=== PATIENT | female | born 1985 | race American Indian/Alaskan Native ===

== ENCOUNTER 2016-05-18 11:18 | Inpatient (IN) | payer MEDICAID ==
--- NOTE | 2016-05-18 12:15 | History and Physical Report ---
History of Present Illness Date of examination: 05/18/16 Date of admission: 05/18/16 11:18 Chief complaint: Oligohydramnios History of present illness: 31-year-old at 38+4 weeks presents with above complaints and issues, she is a [facility] patient. Essential history is patient's seen at [facility] regularly due to hypertension and obesity. During today's evaluation, incidental finding of oligohydramnios noted, CRESCENCIO 3.3 She claims she thinks she ruptured last night and was having contractions however did not call. 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 denies: smoking - Obstetrical History Expected Date of Delivery: 05/28/16 Actual Gestation: 38 Week(s) 4 Day(s) : 4 Para: 3 Medications and Allergies Allergies Allergy/AdvReac Type Severity Reaction Status Date / Time No Known Allergies Allergy Verified 06/19/15 15:47 Home Medications Medication Instructions Recorded Confirmed Last Taken Type Amoxicillin/K Clav Tab [Augmentin 1 tab PO Q12HR #20 tab 06/19/15 Unknown Rx 875 mg] HYDROcodone/APAP 7.5-325 [[place]] 7.5 mg PO Q8HR #150 ml 06/19/15 Unknown Rx Ibuprofen [Motrin] 800 mg PO Q8HR PRN #15 tablet 06/19/15 Unknown Rx Nystatin [Nystatin SUSP] 5 ml PO QID #1 bottle 06/19/15 Unknown Rx Review of Systems Constitutional: no weight gain, no fever, no chills, no sweats Cardiovascular: no orthopnea, no palpitations, no lightheadedness, no shortness of breath, no dyspnea on exertion Respiratory: no shortness of breath, no dyspnea on exertion Gastrointestinal: no abdominal pain, no nausea, no vomiting, no heartburn, no indigestion Genitourinary: leakage of fluid, no vaginal bleeding, no vaginal discharge - Physical Exam Cardiovascular: Regular rate, Normal S1, Normal S2 Lungs: Positive: Clear to auscultation, Normal air movement Abdomen: Positive: normal appearance, soft, other (Obese). Negative: guarding, rigidity Genitourinary (Female): Positive: normal external genitalia Uterus: Positive: enlarged (Dificult to Field Service Manager EFW due to habitus) Extremities: Positive: normal Results All other labs normal. Assessment and Plan A: 31 y/o at 38+4 wks s/p SROM -BPP 12/02 today -3 prior c-sections and desires BTL -Pt ate at 09:00 am P: -Will proceed with 4th repeat LTCS & BTL once possible -She has been consented - Patient Problems (1) 38 weeks gestation of Current Visit: Yes Status: Acute (2) History of 3 sections Current Visit: Yes Status: Acute (3) Spontaneous rupture of amniotic membranes Current Visit: Yes Status: Acute
[2016-05-18] MEDS ORDERED: BICITRA PO ONE (12:21)
[2016-05-18] MEDS ORDERED: PEPCID IV ONE ×2 (12:21→17:12)
[2016-05-18] MEDS ORDERED: REGLAN IV ONE (12:21)
[2016-05-18] MEDS ORDERED: EMLA TP PRN (12:21)
[2016-05-18] MEDS ORDERED: NACL 0.9% 500 ML 500 ML IV ONE (12:22)
[2016-05-18] MEDS ORDERED: ANCEF/STERILE WATER 2 GM/20 ML 20 ML IV NR (13:00)
[2016-05-18] MEDS ORDERED: PITOCin/NS 20 UNIT/1000ML DRIP 1,000 ML IV NR (13:00)
[2016-05-18] MEDS ORDERED: ANCEF/NS 1 GM/50 ML 50 ML IV NR (13:00)
[2016-05-18 13:27] LABS: Basophils % (Auto) 0.5 % (0.0-1.8); Eosinophils % (Auto) 2.1 % (0.0-4.3); Hemoglobin 12.6 gm/dl (10.1-14.3); Mean Corpuscular HGB Conc 33 % (30-34); Mean Corpuscular Hemoglobin 29 pg (28-32); Mean Corpuscular Volume 87 fl (79-97); Platelet Count 212 K/mm3 (140-440); Red Blood Count 4.39 M/mm3 (3.65-5.03); Red Cell Distribution Width 13.8 % (13.2-15.2)
[2016-05-18 13:30] LABS: White Blood Count 10.5 K/mm3 (4.5-11.0)
[2016-05-18] MEDS ORDERED: FLUARIX QUAD 2016-2017(36 MOS+) IM ONE (13:57)
--- NOTE | 2016-05-18 15:56 | Anesthesia Consultation ---
Anesthesia Consult and Med Hx Date of service: 05/18/16 - Airway Anesthetic Teeth Evaluation: Good ROM Head & Neck: Adequate Mental/Hyoid Distance: Adequate Mallampati Class: Class II Intubation Access Assessment: Probably Good - Pre-Operative Health Status ASA Pre-Surgery Classification: ASA2 Proposed Anesthetic Plan: Epidural, Spinal - Pulmonary Hx Asthma: No COPD: No Hx Pneumonia: No - Cardiovascular System Hx Hypertension: No - Central Nervous System Hx Seizures: No Hx Psychiatric Problems: No - Endocrine Hx Renal Disease: No Hx Hypothyroidism: No Hx Hyperthyroidism: No - Hematic Hx Anemia: No Hx Sickle Cell Disease: No - Other Systems Hx Obesity: Yes (Modbid obesity BMI 48.4)
--- NOTE | 2016-05-18 16:05 | Anesthesia Day of Surgery ---
Anesthesia Day of Surgery - Day of Surgery Patient Examined: Yes Patient H&P Reviewed: Yes Patient is NPO: Yes (had breakfast at 9AM)
[2016-05-18] MEDS ORDERED: NARCAN 0.4 MG/1 ML IV PRN ×2 (16:09→19:19)
[2016-05-18] MEDS ORDERED: DILAUDID IV PRN (16:09)
[2016-05-18] MEDS ORDERED: ZOFRAN IV PRN (16:09)
[2016-05-18] MEDS ORDERED: BENADRYL IV PRN (16:09)
[2016-05-18] MEDS: LACTATED RINGERS 1,000 ML IV NR ×3 (16:29→17:20)
[2016-05-18] MEDS ORDERED: SODIUM CHLORIDE FLUSH SYRINGE 10 ML IV NR ×2 (17:00→20:00)
[2016-05-18] MEDS ORDERED: LACTATED RINGERS 1,000 ML IV SCH (17:00)
[2016-05-18] MEDS ORDERED: REGLAN ONE (17:10)
[2016-05-18] MEDS ORDERED: BICITRA ONE (17:10)
[2016-05-18] MEDS ORDERED: MORPHINE ONE (17:24)
[2016-05-18] MEDS ORDERED: ZOFRAN ONE (17:53)
[2016-05-18] MEDS ORDERED: ANCEF ONE (18:02)
[2016-05-18] MEDS ORDERED: ANCEF IV ONE (18:05)
[2016-05-18] MEDS ORDERED: ANCEF/STERILE WATER 2 GM/20 ML IV ONE (18:05)
[2016-05-18] MEDS ORDERED: WATER FOR IRRIG STERILE IR ONE (18:06)
[2016-05-18] MEDS ORDERED: NACL 0.9% IR ONE (18:06)
[2016-05-18] MEDS ORDERED: NEO SYNEPHRINE ONE (18:20)
[2016-05-18] MEDS ORDERED: VERSED ONE ×2 (18:21→18:31)
[2016-05-18] MEDS ORDERED: XYLOCAINE MPF 2% ONE ×2 (18:34→18:45)
[2016-05-18] MEDS ORDERED: SUBLIMAZE ONE (18:36)
[2016-05-18] MEDS ORDERED: NACL 0.9% 100 ML ONE (18:43)
--- NOTE | 2016-05-18 19:17 | Operative Report ---
Operative Report Operative Report: DATE: 05/18/2016 PREOPERATIVE DIAGNOSIS: 31-year-old at 38+4 weeks, 3 prior C-sections, morbid obesity, Oligohydramnios POSTOP DIAGNOSIS: Same NAME OF PROCEDURE: 4th Repeat low transverse section with bilateral tubal ligation using Filshie clips SURGEON: CHARLEY SAMPSON MD ASPHALT LAYER: [] ANESTHESIA: Combined spinal epidural EBL: 900 mL PATHOLOGY SPECIMEN: None URINE OUTPUT: 200 mL FINDINGS: Male in cephalic presentation, time of was 18:23, infant weight was 6 lbs. 15 oz. or 3152 g, Apgars were 8 and 9, normal uterus, tubes and ovaries bilaterally, mild adhesions DESCRIPTION OF PROCEDURE: She was taken to the operating room where she was prepped and draped in a sterile fashion, she was placed in the dorsal supine position. Pfannenstiel incision was performed through her prior incisional scar which was carried through to underlying rectus fascia which was on the midline. The fascial incision was extended laterally with use of Ling scissors , the anterior leaf was then grasped with Kochers forceps elevated dissected sharply and bluntly off the underlying rectus in a similar fashion inferior leaf was grasped elevated dissected sharply and bluntly off the underlying rectus. The rectus was in the midline, good visualization of bladder was noted. A bladder blade was placed in the patient's pelvic cavity; bladder flap was created. A hysterotomy incision was then performed in the lower segment with clear amniotic fluid noted, hysterotomy incision was extended laterally with the use of fingers manually. in cephalic presentation was delivered in the usual manner; cord was clamped and cut was handed over to waiting nursery staff. The placenta was then delivered manually intact , the uterus was exteriorized cleared of all clots and debris. Hysterotomy incision was then closed in a running locked fashion with 0 Vicryl on a CTX; using the same suture was imbricate the initial layer. Interrupted figure-of- eight stitches were used to obtain hemostasis. Attention was then turned to the left and right tubes where using Filshie clips both tubes were clamped and occluded with good blanching noted. The Uterus was then returned to the patient 's pelvic cavity; peritoneal edges were grasped with hemostats and Erendira's elevated copiously irrigation was used to clear the gutters of all clots and debris. Tercel hemostatic agent was then applied to the hysterotomy incision as a means to prevent future bleeding, Interceed was then applied into the pelvic cavity as a means to prevent future adhesions. The peritoneal layer was then closed in a running fashion with 3-0 Vicryl and the rectus was reapproximated with a single [id number] stitch. The fascia was closed in a running fashion with 0 Vicryl and tied in the opposite side. The subcutaneous layer was irrigated and then reapproximated with interrupted [id number]-[id number] stitches. The skin was closed in a subcuticular manner with 4-0 Vicryl. She tolerated the procedure well lap and instrument counts were correct 2 she did receive 3 g of Ancef prior to incision she is transferred to PACU in stable condition thank you.
[2016-05-18] MEDS ORDERED: TYLENOL PO PRN (19:19)
[2016-05-18] MEDS ORDERED: PHENERGAN PR PRN (19:19)
[2016-05-18] MEDS ORDERED: MILK OF MAGNESIA PO PRN (19:19)
[2016-05-18] MEDS ORDERED: TUCKS PAD TP PRN (19:19)
[2016-05-18] MEDS ORDERED: MYLICON PO PRN (19:19)
[2016-05-18] MEDS ORDERED: LANSINOH TP PRN (19:19)
[2016-05-18] MEDS ORDERED: ANUCORT-HC PR PRN (19:19)
[2016-05-18] MEDS ORDERED: SENOKOT PO PRN (19:19)
[2016-05-18] MEDS ORDERED: MORPHINE IV PRN ×2 (19:27)
--- NOTE | 2016-05-18 19:27 | Post Anesthesia Evaluation ---
- Post Anesthesia Evaluation Patient Participated: Yes Airway Patent: Yes Stable Respiratory Function: Yes Nausea/Vomiting: No Temp > 96.8F: Yes Pain Manageable: Yes Adequeate Hydration: Yes Anesthesia Complications: No Block Receding Appropriately: Yes Patient on Ventilator: No
[2016-05-18] MEDS: TORADOL IV PRN (19:41)
[2016-05-18] MEDS ORDERED: D5LR 1,000 ML IV SCH (20:00)
[2016-05-18] MEDS ORDERED: PITOCin/NS 20 UNIT/1000ML DRIP 1,000 ML IV SCH (20:00)
[2016-05-19] MEDS ORDERED: BOOSTRIX IM ONE (06:00)
--- NOTE | 2016-05-19 07:16 | Progress Note ---
Assessment and Plan - Patient Problems (1) Status post repeat low transverse section Diagnosis Date: 05/19/16 Current Visit: Yes Status: Acute Plan to address problem: A: S/P Repeat C Section with BTL - POD #1 Doing well P: Continue with RPOC Anticipate discharge in 24-48hrs Subjective - Subjective Date of service: 05/19/16 Principal diagnosis: s/p Repeat C Section with BTL - POD #1 Interval history: Pt is feeling well without complaints. Tolerating clear liquids without nausea or vomiting. No flatus yet. Patient reports: appetite normal, voiding normally, pain well controlled, no flatus, no bowel movement, no ambulating normally : doing well, bottle feeding Objective - Vital Signs Latest vital signs: Vital Signs Temp Pulse Pulse Resp BP BP Pulse Ox 05/19/16 03:22 97.5 F L 83 20 124/75 05/18/16 20:27 71 18 126/81 99 05/18/16 20:25 97.4 F L 75 18 118/70 05/18/16 20:00 78 18 115/64 99 05/18/16 19:41 18 05/18/16 19:40 77 18 122/72 93 05/18/16 19:35 79 18 109/60 93 05/18/16 19:30 83 18 116/61 93 05/18/16 19:24 97.6 F 84 18 93 05/18/16 13:11 89 98 05/18/16 13:05 86 98 05/18/16 13:00 89 96 05/18/16 12:55 94 H 92 05/18/16 12:51 91 H 99 05/18/16 12:46 86 99 05/18/16 12:41 94 H 95 05/18/16 12:00 98.6 F Intake and Output 05/18/16 05/19/16 05/19/16 22:59 06:59 14:59 Intake Total 250 1000 Output Total 50 Balance 200 1000 Intake: IV 250 1000 D5lr 1,000 ml @ 125 mls/ 250 1000 hr IV DIRECT FAMILIA Rx#: [id number] Output: Urine 50 Uretheral (Cardenas) 50 - Exam Breasts: Present: deferred Cardiovascular: Present: Regular rate Lungs: Present: Clear to auscultation Abdomen: Present: normal appearance, soft Uterus: Present: normal, firm, fundal height below umbilicus Extremities: Present: normal Incision: Present: normal, dry, intact, dressed - Labs Labs: Abnormal lab results 05/18/16 05/18/16 Range/Units 13:05 13:05 [place] % (Auto) 11.9 H (0.0-7.3) % [place] # 1.2 H (0.0-0.8) K/mm3 Crossmatch See Detail Laboratory Tests 05/18/16 05/18/16 05/19/16 13:05 13:05 07:07 WBC 10.5 RBC 4.39 Hgb 12.6 11.1 Hct 38.0 33.1 MCV 87 MCH 29 MCHC 33 RDW 13.8 Plt Count 212 Lymph % (Auto) 24.6 [place] % (Auto) 11.9 H Eos % (Auto) 2.1 Baso % (Auto) 0.5 Lymph # 2.5 [place] # 1.2 H Eos # 0.2 Baso # 0.0 Seg Neutrophils % 60.9 Seg Neutrophils # 6.5 Blood Type O POSITIVE Antibody Screen Negative Crossmatch See Detail
[2016-05-19 07:20] LABS: Hematocrit 33.1 % (30.3-42.9); Hemoglobin 11.1 gm/dl (10.1-14.3)
[2016-05-19] MEDS: TORADOL IV PRN (07:42)
[2016-05-19] MEDS: FEOSOL PO SCH (12:44)
[2016-05-19] MEDS: PRENATAL VITAMIN PO SCH (12:45)
[2016-05-19] MEDS: PERCOCET 5/325 PO PRN ×2 (15:25→23:45)
[2016-05-19] MEDS: MOTRIN PO PRN ×2 (17:24→23:45)
[2016-05-20] MEDS: PERCOCET 5/325 PO PRN (06:30)
[2016-05-20] MEDS: MOTRIN PO PRN (06:30)
--- NOTE | 2016-05-20 09:34 | Progress Note ---
Assessment and Plan - Patient Problems (1) Status post repeat low transverse section Diagnosis Date: 05/19/16 Current Visit: Yes Status: Acute Plan to address problem: A: S/P Repeat C Section with BTL - POD #2 Doing well P: Continue with RPOC May go home today Subjective - Subjective Date of service: 05/20/16 Principal diagnosis: s/p Repeat C Section with BTL - POD #2 Interval history: Pt is feeling well without complaints. Tolerating a reg diet without nausea or vomiting, ambulating and voiding without difficulty. Requests to go home today. Patient reports: appetite normal, voiding normally, pain well controlled, flatus , ambulating normally, no dizzy ambulation, no nauseated : doing well Objective - Vital Signs Latest vital signs: Vital Signs Temp Pulse Resp BP 05/20/16 08:41 97.9 F 80 20 139/88 05/20/16 06:30 18 05/19/16 23:55 99.0 F 75 20 124/68 05/19/16 23:45 18 05/19/16 15:31 98.6 F 98 H 20 126/70 05/19/16 11:37 98.0 F 94 H 20 124/66 Intake and Output 05/19/16 05/20/16 05/20/16 22:59 06:59 14:59 Intake Total 960 720 240 Output Total 300 Balance 660 720 240 Intake: Oral 120 240 240 Intake, Free Water 840 480 Output: Urine 300 Void 300 Other: Total, Intake Amount 120 240 240 Total, Output Amount 300 # Voids Void 1 1 - Exam Breasts: Present: deferred Cardiovascular: Present: Regular rate Lungs: Present: Clear to auscultation Abdomen: Present: normal appearance, soft Uterus: Present: normal, firm, fundal height below umbilicus Extremities: Present: normal Incision: Present: normal, dry, intact - Labs Labs: Laboratory Tests 05/18/16 05/18/16 05/19/16 13:05 13:05 07:07 WBC 10.5 RBC 4.39 Hgb 12.6 11.1 Hct 38.0 33.1 MCV 87 MCH 29 MCHC 33 RDW 13.8 Plt Count 212 Lymph % (Auto) 24.6 [place] % (Auto) 11.9 H Eos % (Auto) 2.1 Baso % (Auto) 0.5 Lymph # 2.5 [place] # 1.2 H Eos # 0.2 Baso # 0.0 Seg Neutrophils % 60.9 Seg Neutrophils # 6.5 Blood Type O POSITIVE Antibody Screen Negative Crossmatch See Detail
[2016-05-20] MEDS: FEOSOL PO SCH (10:32)
[2016-05-20] MEDS: PRENATAL VITAMIN PO SCH (10:32)
--- NOTE | 2016-05-20 11:14 | Discharge Summary ---
Providers - Providers Date of Admission: 05/18/16 11:18 Date of discharge: 05/20/16 Attending physician: CHARLEY SAMPSON Primary care physician: DETHISTLER OPERATOR Hospitalization Reason for admission: section, IUP at term Delivery: Procedure: section, bilateral tubal ligation, repeat low transverse Episiotomy: none Laceration: none Incision: normal, dry, intact Other procedures: tubal ligation complications: none Discharge diagnosis: IUP at term delivered [place] baby: male Hospital course: Pt is a 31-year-old BF at 38+4 weeks who presented to [facility] due to hypertension and obesity. During her evaluation, she had an incidental finding of oligohydramnios with an CRESCENCIO 3.30 She was therefore dispositioned for delivery , and since she had had 3 previous c sections, she will undergo C Section #4 with BTL. She tolerated the procedure well, and post operative course was unremarkable. By POD #2 she was tolerating a reg diet without nausea or vomiting , ambulating and voiding without difficulty, and thus discharged to home on POD #2 in stable condition. Condition at discharge: Good Disposition: DISCHARGED TO HOME OR SELFCARE - Discharge Diagnoses (1) Status post repeat low transverse section Status: Resolved Plan - Discharge Medications Prescriptions: Ibuprofen [Motrin 600 MG tab] 600 mg PO Q8H PRN #30 tablet PRN Reason: Pain Multivitamin with Iron [Multivitamins with Iron] 1 each PO DAILY #30 tablet oxyCODONE /ACETAMINOPHEN [Percocet 5/325] 1 tab PO Q6HR PRN #30 tablet PRN Reason: Pain oxyCODONE /ACETAMINOPHEN [Percocet 5/325 mg] 1 tab PO Q6H PRN #30 tablet PRN Reason: Pain, Moderate (4-6) - Provider Discharge Summary Activity: routine, no sex for 6 weeks, no heavy lifting 4 weeks, no strenuous exercise Diet: routine Instructions: routine Additional instructions: [] Smoking cessation referral if applicable(refer to patient education folder for contact #) [] Refer to [facility] Booklet Call your doctor immediately for: * Fever > 100.5 * Heavy vaginal bleeding ( >1 pad per hour) * Severe persistent headache * Shortness of breath * Reddened, hot, painful area to leg or breast * Drainage or odor from incision. * Keep incision clean and dry at all times and follow doctor's instructions regarding bathing/showering - Follow up plan Follow up: PRIMARY CAREMD [Primary Care Provider] - 7 Days BERTIN RICH MD [Staff Physician] - 14 Days
[2016-05-20] MEDS ORDERED: PERCOCET 5/325 PO PRN (11:24)
[2016-05-20] MEDS ORDERED: FLUARIX QUAD 2016-2017(36 MOS+) IM ONE (12:33)
[2016-05-20 15:59] VITALS: BP 135/81
== END 2016-05-20 16:16 | disposition home or self-care (01) | DRG 765 ==
LOC: APU 11:18 → OB 21:00
PROVIDERS: ADMIT Obstetrics & Gynecology Gynecology; ATTEND Obstetrics & Gynecology Gynecology
PROC: 10D00Z1 Extraction of Products of Conception, Low, Open Approach (ICD-10-PCS; principal; 2016-05-18)
PROC: 0UL70CZ Occlusion of Bilateral Fallopian Tubes with Extraluminal Device, Open Approach (ICD-10-PCS; 2016-05-18)
DX: O41.03X0 Oligohydramnios, third trimester, not applicable or unspecified (principal); O16.4 Unspecified maternal hypertension, complicating childbirth; Z68.42 Body mass index [BMI] 45.0-49.9, adult; O34.211 Maternal care for low transverse scar from previous cesarean delivery; N85.8 Other specified noninflammatory disorders of uterus; E66.01 Morbid (severe) obesity due to excess calories; O99.214 Obesity complicating childbirth; Z37.0 Single live birth; Z3A.38 38 weeks gestation of pregnancy; Z30.2 Encounter for sterilization
CPT/HCPCS: 36415; 85014; 85018; 85025; 86850; 86900; 86901; 86920; 90471; 90686; 90715; 99211; C9250; G0008; G0463; J0690; J1200; J1885; J2250; J2270; J2370; J2405; J2590; J2765; J3010; J7120; J7121

== ENCOUNTER 2019-08-10 12:36 | Emergency (ER) | payer OTHER ==
[2019-08-10 12:44] VITALS: BP 149/88
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
== END 2019-08-10 15:33 | disposition home or self-care (01) ==
LOC: ED 12:36
DX: M62.838 Other muscle spasm (principal); M19.90 Unspecified osteoarthritis, unspecified site; E66.9 Obesity, unspecified; F17.200 Nicotine dependence, unspecified, uncomplicated; Z68.41 Body mass index [BMI] 40.0-44.9, adult; Z98.890 Other specified postprocedural states; Z79.899 Other long term (current) drug therapy; V49.49XA Driver injured in collision with other motor vehicles in traffic accident, initial encounter; Y92.410 Unspecified street and highway as the place of occurrence of the external cause; Y92.89 Other specified places as the place of occurrence of the external cause; Y99.8 Other external cause status
CPT/HCPCS: 99282